=== PATIENT | female | born 1955 | race Caucasian/White ===

== ENCOUNTER 2018-10-07 09:04 | Inpatient (IN) | payer OTHER ==
[~2018-10-07] VITALS: Ht 170.2 cm; Wt 82.5 kg
[~2018-10-07 09:04] MED LIST: ALPRAZOLAM 0.50.5 M1 PO; COZAAR 25 MG TA25 MG PO; HYDROCODONE-APA1 TA1 PO; MELOXICAM7.5 MG PO; MOBIC15 MG PO; VIIBRYD40 MG PO; WELLBUTRIN XL150 M1 PO; ZYRTEC10 M2 PO
[2018-10-07 09:05] VITALS: BP 142/83
[2018-10-07] MEDS ORDERED: LOSARTAN-HCTZ1 EAC1 PO (09:22)
[2018-10-07 09:26] LABS: BASOPHILS 0.7 % (0.0-2.0); HEMATOCRIT 49.9 % (37.0-47.0); HEMOGLOBIN 16.9 gm/dL (12.0-15.0); LYMPHOCYTES 14.1 % (24.0-44.0); MCH 30.7 pg (26.0-34.0); MCHC 33.9 g/dL (28.0-37.0); MCV 90.7 fL (80.0-100.0); MONOCYTES 9.7 % (1.0-8.0); PLATELET COUNT 348 thou/uL (150-400); POLYS 75.5 % (36.0-66.0); RDW 12.9 % (10.5-14.5); WBC 18.5 thou/uL (4.0-11.0)
--- NOTE | 2018-10-07 09:26 | EKG ---
[place] [address] [facility] [place] [address] ELECTROCARDIOGRAM REPORT Name: MYRON CULLEN Room #: PRE [facility].#: [id number] Admission: Attend Phys: Discharge: Date of : 59 Report #: [id number] THIS REPORT FOR: //name// [facility] ED Test Date: 2018-10-07 Test Time: 09:07:56 Pat Name: MYRON CULLEN Department: Room: Gender: F Credit Risk Analyst: : 1955 Requested By: Quincy Cali Order Number: [id number] MD: See Allred Measurements Intervals [place] Rate: 113 P: 87 AL: 213 QRS: -22 QRSD: 87 T: 77 QT: 296 QTc: 406 Interpretive Statements Sinus tachycardia Right atrial enlargement Probable inferior infarct, age indeterminate Probable anterolateral infarct, acute No previous ECG available for comparison Electronically Signed On 10-07-2018 9:26:03 CFO by See Allred [email or web address] <ELECTRONICALLY SIGNED> By: See Allred MD, [facility] 10/07/18 0926 0907 6 See Allred MD, FACC /EPI
[2018-10-07 09:28] VITALS: BP 108/71
[2018-10-07 09:29] LABS: CALCIUM 10.3 mg/dL (8.5-10.1); CREATININE 1.3 mg/dL (0.6-1.0); POTASSIUM 3.2 mmol/L (3.5-5.1)
[2018-10-07 09:41] LABS: TROPONIN-I 16.32 ng/mL (<0.06)
[2018-10-07 10:17] LABS: CHOLESTEROL 243 mg/dL (<200); HDL CHOLESTEROL 51 mg/dL (>40); LDL CHOLESTEROL 158 mg/dL (<100); TC:HDL 4.8 Ratio (Not establshd); TRIGLYCERIDE 170 mg/dL (<150); VLDL 34 mg/dL (<40)
--- NOTE | 2018-10-07 11:52 | 2DMMODE ---
[facility] [place] [address] 2 D/M-MODE ECHOCARDIOGRAM Name: MYRON CULLEN Room #: 170-6 ADM IN M.R.#: [id number] Admission: 10/07/18 Attend Phys: Shaka Parham Discharge: Date of : 59 Date of Service: 10/07/18 1152 Report #: [id number] THIS REPORT FOR: //name// APPROVED REPORT Study performed: 10/07/2018 11:02:10 EXAM: Comprehensive 2D, Doppler, and color-flow Echocardiogram Patient Location: Room #: 9 Status: stat BSA: 1.90 HR: 102 bpm BP: 142/82 mmHg Rhythm: Tachycardia Other Information Study Quality: Adequate Indications CAD Chest Pain Hypertension/HDD 2D Dimensions RVDd: 33.93 mm IVSd: 8.44 (7-11mm) LVOT Diam: 21.15 (18-24mm) LVDd: 43.49 mm PWd: 8.53 (7-11mm) Ascending Ao: 32.40 (22-36mm) LVDs: 29.87 (25-40mm) Aortic Root: 29.96 mm IVC: 14.00 mm Volumes Left Atrial Volume (Systole) Single Plane 4CH: 28.87 mL Single Plane 2CH: 29.63 mL LA ESV Index: 17.00 mL/m2 Aortic Valve AoV Peak Jony.: 1.04 m/s AO Peak Gr.: 4.35 mmHg LVOT Max P.21 mmHg LVOT Max V: 0.74 m/s ANA MARÍA Vmax: 2.50 cm2 Pulmonary Valve PV Peak Jony.: 0.88 m/s PV Peak Gr.: 3.09 mmHg [facility] [address] [place] [address] 2 D/M-MODE ECHOCARDIOGRAM Name: MYRON CULLEN Room #: 170-6 ADM IN ..#: [id number] Admission: 10/07/18 Attend Phys: Shaka Parham Discharge: Date of : 59 Date of Service: 10/07/18 1152 Report #: [id number] Tricuspid Valve TR Peak Jony.: 2.30 m/s TR Peak Gr.: 21.07 mmHg PA Pressure: 26.00 mmHg Left Ventricle The left ventricle is normal size. There is hypokinesis in the apical wall. There is hypokinesis in the apical septal wall. There is hypokinesis in the apical inferior wall. There is normal left ventricular wall thickness. Left ventricular systolic function is mild to moderately decreased. LVEF is 40-45%. This study is not technically sufficient to allow evaluation of the LV diastolic function. Right Ventricle The right ventricle is normal size. The right ventricular systolic function is normal. Atria The left atrium size is normal. The right atrium size is normal. Aortic Valve The aortic valve is normal in structure. No aortic regurgitation is present. There is no aortic valvular stenosis. Mitral Valve The mitral valve is normal in structure. Trace mitral regurgitation. No evidence of mitral valve stenosis. Tricuspid Valve The tricuspid valve is normal in structure. There is trace tricuspid regurgitation. Estimated PAP 26 mmHg. There is no pulmonary hypertension. Pulmonic Valve The pulmonary valve is normal in structure. There is no pulmonic valvular regurgitation. Great Vessels The aortic root is normal in size. IVC is normal in size and collapses >50% with inspiration. Pericardium There is no pericardial effusion. [facility] [address] [address] 2 D/M-MODE ECHOCARDIOGRAM Name: MYRON CULLEN Room #: 170-6 ADM IN M.R.#: [id number] Admission: 10/07/18 Attend Phys: Shaka Parham Discharge: Date of : 59 Date of Service: 10/07/18 1152 Report #: [id number] <Conclusion> The left ventricle is normal size. LVEF is 40-45%. There is hypokinesis in the apical wall. There is hypokinesis in the apical septal wall. There is hypokinesis in the apical inferior wall. The aortic valve is normal in structure. The mitral valve is normal in structure. Trace mitral regurgitation. The tricuspid valve is normal in structure. There is trace tricuspid regurgitation. Estimated PAP 26 mmHg. There is no pulmonary hypertension. The pulmonary valve is normal in structure. There is no pericardial effusion. <ELECTRONICALLY SIGNED> By: Shaka Bach MD 10/07/18 1152 1152 115 Shaka Bach MD /INF
[2018-10-07] MEDS ORDERED: NORCO 10-325 T1 EACH PO (12:22)
--- NOTE | 2018-10-07 14:18 | NUR ---
ASSUMED PATIENT CARE AROUND 1200 FROM [facility] HEALTH [facility]OC[facility]. RIGHT GROIN SITE, C/D/I. NO HEMEATOMA. SEE FLOW SHEET IN CHART. IV LAC. TOLERATING DIET.
[2018-10-07 15:56] VITALS: BP 117/62
[2018-10-07 19:48] VITALS: BP 126/64
[2018-10-07 20:00] VITALS: BP 135/80
--- NOTE | 2018-10-07 21:05 | CATHLAB ---
[facility] [address] [place] [address] INVASIVE PROCEDURE REPORT Name: DIAMANTE CULLEN Room #: 219-P ADM IN .R.#: [id number] Admission: 10/07/18 Attend Phys: Shaka Parham Discharge: Date of : 59 Date of Service: 10/07/182104 Report #: [id number] THIS REPORT FOR: //name// APPROVED REPORT Study performed: 10/07/2018 09:30:30 Patient Details Patient Status: In-Patient Room #: The patient is a 63 year-old female Event Personnel Shaka Bach Retail Business Development Manager, Joseph Bustillo RN RN, Ariella Peres Monitor, Diamante Henson RTR, ORCHESTRA TEACHER Scrub Procedures Performed Art Access - R femoral artery* 20574 Initial Mod Sed Same Phys/QHP Gr5y 956569 30188 Mod Sed Same Phys/QHP Ea 559280 Left Heart Cath w/or w/o Coronaries [id number] [facility] GIOVANI Revasc AMI Total/Sub Single LAD C9606 AMIREVSING Hemostasis w/ Mynx, supervision of conscious sedation Indication STEMI (>24 hrs to = 48 hrs) Procedure Narrative The patient was brought emergently to the Cardiac Catheterization Laboratory and was prepped and draped in a sterile manner. The Right Groin^ was infiltrated with 1% Lidocaine subcutaneous anesthesia. A PINNACLE 6FR Sheath #[id number] sheath was inserted into the RFA^. Coronary angiography was performed using coronary diagnostic catheters. The right coronary system was accessed and visualized with a JR 4 catheter. The left coronary system was accessed and visualized with a JL 4 catheter. The left ventricle was accessed and visualized with a JR 4 catheter. Left ventricular/Aortic Valve gradient assessed via catheter pullback. The patient tolerated the procedure well and there were no complications associated with the procedure. There was no hematoma. Intraoperative Conscious Sedation Sedation start time: 09:46 Case end Time: 10:26 Versed 1 mg [facility] [address] [address] INVASIVE PROCEDURE REPORT Name: DIAMANTE CULLEN Room #: 219-P [facility] IN [facility].#: [id number] Admission: 10/07/18 Attend Phys: Shaka Parham Discharge: Date of : 59 Date of Service: 10/07/185 Report #: [id number] Fluoro Time: 10.08 minutes Dose: DAP 3919.00 cGycm2 591 mGy Contrast Type and Amount: Omnipaque 140 ml Coronary Angiography The patient's coronary anatomy is right dominant. Diagnostic Cath Left Main Normal origin and moderate to large caliber bifurcates left anterior descending and circumflex. Luminal irregularities are noted but no high-grade lesions are present LAD Moderate caliber vessel which has proximal calcifications noted. The vessel then continues on giving rise to septal shank pinner and then is totally occluded. There is LUZ MARIA 0 to LUZ MARIA 1 flow at best with long injections identified. Postdilatation the vessels a moderate caliber type III vessel with luminal irregularities in its course but no high-grade lesions be on the widely patent stented area Diagonal 1 Small to moderate caliber vessel which has luminal irregularities of less than 50% proximally. It then continues on courses in the anterolateral wall free of hiigh-grade disease Circumflex Small to moderate caliber vessel courses in the AV groove posteriorly. His rise to marginal branches and his course. In its midportion there is a region of irregularities and concentric irregular stenosis of 50% at worst. The vessel reconstitutes of continues on giving rise to posterior wall branches with luminal irregularities noted OM1 Moderate caliber vessel which has a mid 50% lesion as described above. Tortuous course towards the apex free of high-grade disease be on this 50% region Right Coronary Small-caliber vessel normal origin. Has moderate lesions in the proximal portion with some small RV marginal branches noted. Continues posteriorly where it gives rise to a very small posterior descending artery and posterior just circulation. Moderate luminal irregularities are noted throughout the course. R PDA Small-caliber vessel diffusely diseased Left Ventriculography Left Ventriculography was not performed. Hemodynamics The aortic pressure is 136/71 mmHg with a mean of 80 mmHg. The left ventricular pressure is 117/7 mmHg with a mean of mmHg. The left ventricular end diastolic pressure is 21 mmHg. PCI Technique [facility] [address] [address] INVASIVE PROCEDURE REPORT Name: DIAMANTE CULLEN PREETI Room #: 219-P ADM IN M.R.#: [id number] Admission: 10/07/18 Attend Phys: Shaka Parham Discharge: Date of : 59 Date of Service: 10/07/18 2330 Report #: [id number] Following determination of intervention a standard left JL4 guide was advanced under fluoroscopic realization and engaged the left coronary ostium. A 0.014 interventional wire was then advanced to the distal LAD. A 2.5 x 15 mm balloon was then advanced and deployed and inflated per standard protocol several times as noted in the case noted in the case monitoring data. A 2.5 x 18 mm Medtronic GIOVANI stent was then positioned across the lesion and dilated to 18 josh. Following angiography was noted distal to the stent was still significant stenosis and a 2.5 mm x 8 mm Medtronic GIOVANI stent was then positioned deployed. Multiple inflations at 18 josh were carried forth within the stent to fully expand. Aliquots of IV nitroglycerin were given throughout the case. Final angiograms noted a widely patent vessel without any significant loss of side branch distal embolization or luminal disruption. It was felt satisfactory result and the wire was removed. Catheter was taken out and the sheath was then pulled and puncture site closed with a minx device. Patient tolerated procedure well and the were no complications PCI Technique Lesion Percutaneous coronary intervention was performed on the proximal left anterior descending artery segment. A LAUNCHER 6FR JL4 #[id number] Guide Catheter was used to engage the ostium. A Luge Wire (J) .014 X 182CM #[id number] Interventional Guidewire was used to cross the lesion. BALLOON DILATION A Balloon catheter Sprinter OTW 2.5 x 15 #[id number] was inserted and inflated up to 10.00atm for 20seconds. Additional Inflation: 8.00atm for 28seconds. Additional Inflation: 10.00atm for 58seconds. STENT DEPLOYMENT A drug-eluting stent RESOLUTE JONATHON OTW 2.5 X 18 #[id number] was inserted and inflated up to 12.00atm for 20seconds. Additional Inflation: 12.00atm for 10seconds. STENT DEPLOYMENT A drug-eluting stent RESOLUTE JONATHON OTW 2.5 X 8 #[id number] was inserted and inflated up to 14.00atm for 15seconds. Additional Inflation: 18.00atm for 10seconds. Additional Inflation: 18.00atm for 12seconds. Conclusion 1. Coronary artery disease moderate two-vessel with severe totally occluded LAD 2. Successful revascularization of the left anterior descending artery and stenting with a 2.5 mm x 18 Medtronic resolute jonathon taken [facility] [place] [address] [place] [address] INVASIVE PROCEDURE REPORT Name: SALIMAHARDYDIAMANTE PREETI Room #: 219-P [facility] IN ..#: [id number] Admission: 10/07/18 Attend Phys: Shaka Parham Discharge: Date of : 59 Date of Service: 10/07/182104 Report #: [id number] to 18 josh 3. Abnormal hemodynamics elevated left ventricular end-diastolic pressures Recommendations Smoking Cessation Cardiac Risk Reduction Program Aggressive Medical Therapy Medications Administered Prasugrel Cardiac Rehabilitation Referral <ELECTRONICALLY SIGNED> By: Shaka Bach MD 10/07/182104 04 04 Shaka Bach MD /INF
[2018-10-08 03:36] LABS: ALBUMIN 3.2 g/dL (3.4-5.0); CALCIUM 9.6 mg/dL (8.5-10.1); CREATININE 0.9 mg/dL (0.6-1.0); TOTAL PROTEIN 7.3 g/dL (6.4-8.2)
[2018-10-08 03:39] LABS: HEMATOCRIT 42.7 % (37.0-47.0); MCH 31.6 pg (26.0-34.0); MCV 90.4 fL (80.0-100.0); RBC 4.72 mil/uL (4.20-5.00)
[2018-10-08 03:41] LABS: POTASSIUM 2.9 mmol/L (3.5-5.1); TROPONIN-I 16.53 ng/mL (<0.06)
[2018-10-08 03:47] VITALS: BP 124/71
[2018-10-08 03:50] LABS: HEMOGLOBIN 14.9 gm/dL (12.0-15.0)
--- NOTE | 2018-10-08 07:45 | NUR ---
ASSUME CARE 1900. PT/VITALS STABLE. UP AD ROHITH. ASSESSMENTS CHARTED. AD ROHITH. PROGRESSING WELL WITH POC. PLAN IS DISCHARGE TOMORROW PER STEMI PROTOCOL. WILL CONTINUE TO FOLLOW WITH POC
[2018-10-08 11:28] VITALS: BP 116/71
--- NOTE | 2018-10-08 16:02 | EKG ---
[place] [address] [facility] [place] [address] ELECTROCARDIOGRAM REPORT Name: MYRON CULLEN Room #: 219-P ADM IN M.R.#: [id number] Admission: 10/07/18 Attend Phys: Srinivasa Dillon DO Discharge: Date of : 59 Report #: [id number] THIS REPORT FOR: //name// Test Date: 2018-10-08 Test Time: 07:20:20 Pat Name: MYRON CULLEN Department: Room: 219 P Gender: F Nurse General Duty: LONNY : 1955 Requested By: Cinthia Phelps Order Number: [id number] MD: See Allred Measurements Intervals [place] Rate: 91 P: 82 [place]: 190 QRS: 2 QRSD: 91 T: 76 QT: 400 QTc: 493 Interpretive Statements Sinus rhythm RSR' in V1 or V2, right VCD Inferior infarct, old Minimal ST elevation, anterior leads Compared to ECG 10/07/2018 09:07:56 anterior injury pattern is less prominent Electronically Signed On 10-08-2018 16:02:04 EDUCATION DEAN by See Allred [email or web address] <ELECTRONICALLY SIGNED> By: See Allred MD, [facility] 10/08/18 1602 9 See Allred MD, [facility] /EPI
[2018-10-08 20:14] VITALS: BP 122/53
[2018-10-09 03:57] LABS: CALCIUM 8.9 mg/dL (8.5-10.1); CREATININE 0.9 mg/dL (0.6-1.0); POTASSIUM 3.6 mmol/L (3.5-5.1)
[2018-10-09 04:36] VITALS: BP 100/54
--- NOTE | 2018-10-09 08:12 | EKG ---
[place] [address] [facility] [address] ELECTROCARDIOGRAM REPORT Name: MYRON CULLEN Room #: 219-P ADM IN M.R.#: [id number] Admission: 10/07/18 Attend Phys: Srinivasa Dillon DO Discharge: Date of : 59 Report #: [id number] THIS REPORT FOR: //name// [facility] Test Date: 2018-10-09 Test Time: 07:20:26 Pat Name: MYRON CULLEN Department: Room: 219 P Gender: F Station Air Traffic Control Specialist: SHARON : 1955 Requested By: Cinthia Phelps Order Number: [id number] MD: See Allred Measurements Intervals [place] Rate: 82 P: 79 [place]: 196 QRS: 6 QRSD: 92 T: 59 QT: 366 QTc: 428 Interpretive Statements Sinus rhythm Anteroseptal infarct, age indeterminate Consider inferior infarct Compared to ECG 10/08/2018 07:20:[address] and T wave abnormality less prominent Electronically Signed On 10-09-2018 8:11:[address] JUDGE by See Allred [email or web address] <ELECTRONICALLY SIGNED> By: See Allred MD, [facility] 10/09/1811 9 9 See Allred MD, [facility] /EPI
[2018-10-09 08:21] VITALS: BP 110/63
[2018-10-09] MEDS ORDERED: TOPROL XL25 MG PO (09:26)
[2018-10-09] MEDS ORDERED: LISINOPRIL2.5 MG PO (09:26)
[2018-10-09] MEDS ORDERED: ATORVASTATIN CA40 MG PO (09:26)
[2018-10-09] MEDS ORDERED: EFFIENT10 MG PO (09:26)
[2018-10-09] MEDS ORDERED: ASPIRIN325 PO (09:26)
[2018-10-09] MEDS ORDERED: NITROGLYCERIN0.4 MG SUBLING (09:31)
--- NOTE | 2018-10-09 09:34 | NUR ---
ASSUME CARE 1900. PT/VITALS STABLE. DENIES ANY PAIN. TOLERATES ACTIVITY WELL. ADEQUATE REST NOTED. ASSESSMETN CHARTED. PROGRESSING WELL WITH POC. PLAN IS POSSIBLE DISCHARGE TODAY. SR ON MONITOR. WILL CONITNUE TO MONITOR AND FOLLOW WITH POC
[2018-10-09 10:05] VITALS: BP 110/63
[2018-10-09 11:17] VITALS: BP 112/55
[2018-10-09] MEDS ORDERED: COZAAR 25 MG TA25 M1 PO (13:14)
--- NOTE | 2018-10-09 14:29 | NUR ---
PT CARE ASSUMED APPROX 0700. PT ALERT AND ORIENTED X4. DENIES PAIN AND SOA. VSS. UP WITH STEADY GAIT. RIGHT GROIN POST CATH SITE C/D/I. PT DISCHARGED THIS SHIFT APPROX 1420. ARRIVED TO TAKE PT HOME. DISCHARGE INSTRUCITONS GIVEN TO PT AND SPOUSE. BOTH DENY QUESTIONS AND CONCERNS REGARDING POST CATH SITE, SITE CARE, DISCHARGE MEDS, SCRIPTS, F/U APPTS, DIET, ACTIVITY LEVEL AND ALL POST HOSPITAL CARES. IV OUT, TELE BOX OFF. HOSPITAL TRANSPORTATION ESCORTED PT OUT VIA WHEELCHAIR. ALL PT'S BELONGINGS IN PT POSSESSION.
== END 2018-10-09 15:00 | disposition home or self-care (01) | DRG 247 ==
LOC: ER 09:04 → EROBS 09:41 → 2N 09:41 → ENTRNSPT 10-09 14:04 → EDTRNSPTSTS 10-09 14:07 → 2N 10-09 15:00
PROVIDERS: Emergency Medicine; Nurse Practitioner Adult Health; ADMIT Internal Medicine
DX: I21.09 ST elevation (STEMI) myocardial infarction involving other coronary artery of anterior wall (principal); F32.9 Major depressive disorder, single episode, unspecified; F41.9 Anxiety disorder, unspecified; I10 Essential (primary) hypertension; I25.10 Atherosclerotic heart disease of native coronary artery without angina pectoris; E78.00 Pure hypercholesterolemia, unspecified; F17.210 Nicotine dependence, cigarettes, uncomplicated; E87.6 Hypokalemia; I34.1 Nonrheumatic mitral (valve) prolapse; Z79.82 Long term (current) use of aspirin; Z79.899 Other long term (current) drug therapy; Z71.6 Tobacco abuse counseling; Z88.0 Allergy status to penicillin; Z88.2 Allergy status to sulfonamides; Z88.8 Allergy status to other drugs, medicaments and biological substances; Z82.49 Family history of ischemic heart disease and other diseases of the circulatory system; Z81.2 Family history of tobacco abuse and dependence
CPT/HCPCS: 10081

== ENCOUNTER 2019-01-27 06:16 | Inpatient (IN) | payer OTHER ==
[~2019-01-27] VITALS: Ht 170.2 cm; Wt 72.7 kg
[~2019-01-27 06:16] MED LIST changes: +ASPIRIN325 PO; +ATORVASTATIN CA40 MG PO; +COZAAR 25 MG TA25 M1 PO; +EFFIENT10 MG PO; +LISINOPRIL2.5 MG PO; +LOSARTAN-HCTZ1 EAC1 PO; +NITROGLYCERIN0.4 MG SUBLING; +NORCO 10-325 T1 EACH PO; +TOPROL XL25 MG PO
[2019-01-27 06:20] VITALS: BP 149/78
[2019-01-27] MEDS ORDERED: ASPIR 8181 MG PO (06:25)
[2019-01-27 06:57] LABS: ABSOLUTE NEUTROPHILS 4.1 thou/uL (1.4-8.2); BASOPHILS 1.2 % (0.0-2.0); EOSINOPHILS 1.9 % (0.0-3.0); HEMATOCRIT 42.8 % (37.0-47.0); HEMOGLOBIN 14.2 gm/dL (12.0-15.0); LYMPHOCYTES 30.5 % (24.0-44.0); MCH 30.1 pg (26.0-34.0); MCHC 33.2 g/dL (28.0-37.0); MCV 90.8 fL (80.0-100.0); MONOCYTES 6.3 % (1.0-8.0); PLATELET COUNT 251 thou/uL (150-400); POLYS 60.1 % (36.0-66.0); RBC 4.72 mil/uL (4.20-5.00); RDW 13.4 % (10.5-14.5); WBC 6.9 thou/uL (4.0-11.0)
[2019-01-27 07:17] LABS: ANION GAP 11 mmol/L (7-16); BUN 10 mg/dL (7-18); CALCIUM 9.6 mg/dL (8.5-10.1); CHLORIDE 106 mmol/L (98-107); CO2 26 mmol/L (21-32); CREATININE 0.9 mg/dL (0.6-1.0); GLUCOSE 120 mg/dL (74-106); POTASSIUM 3.8 mmol/L (3.5-5.1); SODIUM 143 mmol/L (136-145)
[2019-01-27 07:25] LABS: TROPONIN-I <0.06 ng/mL (<0.06)
[2019-01-27 13:05] VITALS: BP 130/62
[2019-01-27 13:22] VITALS: BP 130/62; BP 145/69
[2019-01-27 15:55] VITALS: BP 151/71
--- NOTE | 2019-01-27 18:04 | EKG ---
[address] [address] ELECTROCARDIOGRAM REPORT Name: ASHMichaelMYRON Room #: 205-P ADM IN M.R.#: [id number] ������������������ Admission: 01/27/19 ������������������ Attend Phys: Brain Carvajal DO Discharge: ������������������ Date of : 59 Report #: [id number] ����������������������������������������������������������������� [id number] THIS REPORT FOR: //name// [facility] ED Test Date: 2019-01-27 Test Time: 06:25:47 Pat Name: MYRON CULLEN Department: Room: [facility] Gender: F Dermatology Physician Assistant: MAGED : 1955 Requested By: Melecio Mosley Order Number: [id number] MD: Tino Toussaint Measurements Intervals [place] Rate: 71 P: 79 MN: 217 QRS: -17 QRSD: 103 T: 23 QT: 403 QTc: 438 Interpretive Statements Sinus rhythm Borderline prolonged MN interval Compared to ECG 10/09/2018 07:20:26 No significant changes Electronically Signed On 01-27-2019 18:03:46 CDT by Tino Toussaint [email or web address] ��������������������������������������������� <ELECTRONICALLY SIGNED> ���������������������������������������� By: Tino Toussaint MD ��������������������������������������������� 01/27/19 1803 4 4 Tino Toussaint MD /ANIF
--- NOTE | 2019-01-27 19:01 | NUR ---
ADMITTED TO CCU POST CATH. RIGHT GROIN WITH TRANSPARENT DRESSING WITH 2X2 SMALL AMT BRIGHT RED DRAINIAGE. DID NOT INCREASE AFTER AMBULATION. GOOD APPETITE. HYDROCODON FOR BACK PAIN WITH GOOD RELIEF. IV INFUSING. RESP EVEN AND UNLABORED ON ROOM AIR.
[2019-01-27 19:47] VITALS: BP 121/62
[2019-01-28 04:09] VITALS: BP 127/69
[2019-01-28 04:45] LABS: HEMATOCRIT 39.9 % (37.0-47.0); HEMOGLOBIN 13.3 gm/dL (12.0-15.0); MCH 30.5 pg (26.0-34.0); MCHC 33.4 g/dL (28.0-37.0); MCV 91.3 fL (80.0-100.0); RBC 4.37 mil/uL (4.20-5.00); RDW 13.2 % (10.5-14.5); WBC 9.4 thou/uL (4.0-11.0)
[2019-01-28 07:40] VITALS: BP 132/69
--- NOTE | 2019-01-28 08:09 | NUR ---
ASSESSMENTS CHARTED. PATIENTS RIGHT GROIN SITE CONTINUED TO OOZE SANGINOUS FLUID. NO HEMATOMA DEVELOPED, SITE REMAINED SOFT. PRESSURE DRESSINGS WERE APPLIED 3 TIMES DURING SHIFT. PAIN MEDS WERE GIVEN TWICE DURING SHIFT FOR BACK PAIN. PLAN OF CARE TO CONTINUE CARDIAC REHAB.
[2019-01-28 11:35] VITALS: BP 121/63
[2019-01-28 11:50] VITALS: BP 92/46
[2019-01-28 15:50] VITALS: BP 124/52
[2019-01-28 16:53] VITALS: BP 124/52
--- NOTE | 2019-01-28 17:20 | NUR ---
ASSESSMENT CHARTED - PT WITH NO CO'S OF PAIN OR NAUSEA. BENJI DIET AND FLUIDS. GROIN WITH CONTIUNUAL SLOW OOZEE - DRESSING CHANGED X 1 . CARDIAC DOCTOR IN TO SEE PATIENT AND STATED THAT SHE COULD GO HOME. DR Sanchez NOTIFIED AND D/C ORDERS RECIEVED. IV AND MONITOR REMOVED PRIOR TO D/C. PT LEFT UNNIT VIA WHEELCHAIR - HOME VIA PVT VEHICLE ACCONMPANIED BY , - NO CO'S AT TIME D/C.
--- NOTE | 2019-02-05 22:05 | CATHLAB ---
[facility] [address] [place] [address] INVASIVE PROCEDURE REPORT Name: DIAMANTE CULLEN Room #: 205-P [facility] [place] ..#: [id number] ������������� Admission: 01/27/19 ������������� Attend Phys: Brain Carvajal, Discharge: ��� 01/28/19 ������������� ��� Date of : 59 Date of Service: 02/05/19 2205 �� Report #: [id number] �������� ��������������������������������������������[id number] THIS REPORT FOR: //name// APPROVED REPORT Study performed: 01/27/2019 13:53:59 Patient Details Patient Status: ED Room #: The patient is a 63 year-old female Event Personnel [facility] Administrator, Diana Islas RN, Ramana Fair RN, Evie [place] STATIONARY ENGINEER REFRIGERATION Scrub, Diamante Henson RTR, STATIONARY ENGINEER REFRIGERATION Monitor Procedures Performed Art Access - R femoral artery* Left Heart Cath w/or w/o Coronaries [id number] [facility] [id number] Initial Mod Sed Same Phys/QHP Gr5y [id number] 03043 Mod Sed Same Phys/QHP Ea 589835 Hemostasis w/ Mynx FFR [id number] FFR FFREAADD [id number] FFREAADD, supervision of conscious sedation was a Indication Chest pain Procedure Narrative The Right Groin^ was infiltrated with 1% Lidocaine subcutaneous anesthesia. A 4FR MULTIPACK JR 4/JL 4/PIG #[id number] sheath was inserted into the RFA^. Coronary angiography was performed using coronary diagnostic catheters. The right coronary system was accessed and visualized with a JR4 catheter. The left coronary system was accessed and visualized with a JL4 catheter. The left ventricle was accessed and visualized with a JR4 catheter. Left ventricular/Aortic Valve gradient assessed via catheter pullback. Closure device was deployed with a 6 Fr MYNXGRIP 6/7F #[id number]. There was no hematoma. FFR was performed on Circumflex artery: Pre FFR=1.00; FFR without adenosine=.97; FFR with adenosine=.94 FFR was performed on LAD: FFR without adenosine=.94 FFR was performed on RCA: Pre FFR=1.00; FFR without adenosine=.93 Intraoperative Conscious Sedation Sedation start time: 14:18 Case end Time: 15:11 Versed [address] [address] INVASIVE PROCEDURE REPORT Name: DIAMANTE CULLEN Room #: 205-P [facility]#: [id number] ������������� Admission: 01/27/19 ������������� Attend Phys: Brain Carvajal, Discharge: ��� 01/28/19 ������������� ��� Date of : 59 Date of Service: 02/05/19 2205 �� Report #: [id number] �������� ��������������������������������������������[id number] Fluoro Time: 8.25 minutes Dose: DAP 3028.20 cGycm2 457 mGy Contrast Type and Amount: Omnipaque 90 ml Coronary Angiography The patient's coronary anatomy is right dominant. Diagnostic Cath Left Main Large calibered normal origin bifurcates left into the descending left circumflex. No significant high-grade lesions are noted. LAD Moderate caliber type II vessel coursing the anterior interventricular sulcus free of high-grade disease. His evidence of luminal irregularities present as it courses towards the apex and terminates at the apex. It is a small region of bending that is noted in the proximal mid portion of the LAD before the stent. The stent there is previously placed is widely patent without any significant abnormalities Diagonal 1 Small to Moderate caliber vessel without high-grade lesions noted Circumflex Moderate to large caliber vessel coursing the AV groove posteriorly giving rise to a circumflex marginal branch. The circumflex marginal branch has a 10 mm segment of moderate stenosis which appears to be concentric. The vessel continues and terminates in the lateral apical portion of the left ventricle. OM1 Moderate caliber vessel essentially the circumflex couldn't proper as described above Right Coronary Moderate caliber vessel of normal origin. Coursing in the AV groove rhythm irregularities of mild to moderate nature identified. No significant obstructive lesions are noted. It then courses posteriorly to the crux of the hardware posterior descending artery originates. The entire posterior circulation is diminutive in size and consists of several small diminutive branches. R PDA Diminutive size vessel no significant lesions noted Left Ventriculography Left Ventriculography was not performed. IVUS Fractional Flow [place] was performed on the left circumflex and mid left anterior descending artery vessel. A 6 Israeli Yuliya left 4 curved Guide Catheter was used to engage the left coronary ostium. A FFR wire was used. Hemodynamics [facility] [address] [place] [address] INVASIVE PROCEDURE REPORT Name: DIAMANTE CULLEN Room #: [address] [place] [address] [place] M.R.#: [id number] ������������� Admission: 01/27/19 ������������� Attend Phys: Brain Carvajal, Discharge: ��� 01/28/19 ������������� ��� Date of : 59 Date of Service: 02/05/192204 �� Report #: [id number] �������� ��������������������������������������������[id number] The aortic pressure is 134/71 mmHg with a mean of 98 mmHg. The left ventricular pressure is 148/0 mmHg with a mean of mmHg. The left ventricular end diastolic pressure is 16 mmHg. PCI Technique Lesion The lesion stenosis prior to intervention was left circumflex and mid left anterior descending artery% with LUZ MARIA 6 Israeli Yuliya left 4 curved flow. A left coronary Guide Catheter was used to engage the ostium. A FFR wire Interventional Guidewire was used to cross the lesion. Conclusion 1. Coronary disease, moderate, two-vessel with patent stent in the LAD 2. Normal hemodynamics 3. Fractional flow reserve of the left circumflex and left anterior descending were not significant Recommendations Cardiac Risk Reduction Program Aggressive Medical Therapy ��������������������������������������������� <ELECTRONICALLY SIGNED> ���������������������������������������� By: Shaka Bach MD ��������������������������������������������� 02/05/192204 04 04 Shaka Bach MD /INF
== END 2019-01-28 17:19 | disposition home or self-care (01) | DRG 287 ==
LOC: ER 06:16 → 2N 10:27 → EROBS 10:27 → 2N 13:23 → ENTRNSPT 01-28 17:06 → 2N 01-28 17:19
PROVIDERS: Emergency Medicine; Internal Medicine; ADMIT Internal Medicine Geriatric Medicine
PROC: B2151ZZ Fluoroscopy of Left Heart using Low Osmolar Contrast (ICD-10-PCS; principal; 2019-01-27)
PROC: 4A023N7 Measurement of Cardiac Sampling and Pressure, Left Heart, Percutaneous Approach (ICD-10-PCS; principal; 2019-01-27)
PROC: B2111ZZ Fluoroscopy of Multiple Coronary Arteries using Low Osmolar Contrast (ICD-10-PCS; principal; 2019-01-27)
DX: I25.110 Atherosclerotic heart disease of native coronary artery with unstable angina pectoris (principal); M19.90 Unspecified osteoarthritis, unspecified site; F32.9 Major depressive disorder, single episode, unspecified; F41.9 Anxiety disorder, unspecified; I10 Essential (primary) hypertension; F17.210 Nicotine dependence, cigarettes, uncomplicated; Z71.6 Tobacco abuse counseling; I25.2 Old myocardial infarction; Z95.5 Presence of coronary angioplasty implant and graft; Z98.51 Tubal ligation status; Z79.82 Long term (current) use of aspirin; Z79.899 Other long term (current) drug therapy; Z88.0 Allergy status to penicillin; Z88.2 Allergy status to sulfonamides; Z88.8 Allergy status to other drugs, medicaments and biological substances; Z82.49 Family history of ischemic heart disease and other diseases of the circulatory system
CPT/HCPCS: 10081